=== PATIENT | female | born 1930 | race Caucasian/White ===

== ENCOUNTER → 2016-07-24 | Outpatient (CLI) | payer MEDICARE, OTHER ==
[~2016-07-24] MED LIST: ALBU6.7H IH; BISO1TAB94 PO; CALC-732 PO; CELE200C PO; CETI10CA PO; CHOL200012 PO; GLUC100016 PO; LANS15TA4 PO; MOME220A3 INH; MONT10TA21 PO; NITR0.4T7 SL; RAMI10TA PO; ZOLP5TAB PO
== END ==
LOC: LAB 11:31
PROVIDERS: ATTEND Family Medicine
DX: E03.4 Atrophy of thyroid (acquired) (principal)
CPT/HCPCS: 36415; 84436; 84443